=== PATIENT | male | born 1980 ===

== ENCOUNTER 2024-11-23 05:25 | Day surgery (SDC) | payer OTHER ==
[2024-11-17 08:17] VITALS: BP 127/72
[2024-11-17 09:06] LABS: PH,URINE 5.5 (5.0-8.0); URINE APPEARANCE Clear; URINE BILIRRUBIN Negative (NEGATIVE); URINE BLOOD Negative; URINE COLOR Yellow; URINE GLUCOSE Negative (NEGATIVE); URINE KETONE Trace (NEGATIVE); URINE LEUKOCYTE Negative; URINE NITRATE Negative; URINE PROTEIN Negative (NEGATIVE)
[2024-11-17 09:09] LABS: BASO % 0.2 % (0.1-1.2); EOS # 0.13 (0.04-0.54); EOS % 1.2 % (0.7-7.0); HEMATOCRIT 44.7 % (40.1-51.0); HEMOGLOBIN 14.8 g/dL (13.7-17.5); LYMPH # 3.72 (1.18-3.74); LYMPH % 33.6 % (19.3-53.1); MEAN CORPUSCULAR HEMOGLOBIN 29.2 pg (25.6-32.2); MONO # 0.62 (0.24-0.82); MONO % 5.6 % (4.7-12.5); NEUT # 6.52 (1.56-6.13); NEUT % 58.9 % (34.0-71.1); PLATELET COUNT 302 K/uL (163-369); RED BLOOD COUNT 5.07 M/uL (4.63-6.08); RED CELL DISTRIBUTION WIDTH 13.1 % (11.6-14.4)
[2024-11-17 09:10] LABS: URINE BACTERIA 7.3 uL (0.0-1933); URINE RBC 5.7 uL (0.0-20.8)
[2024-11-17 09:25] LABS: URINE CAST 0.14 uL (0.0-1.40); URINE EPITHELIAL CELLS 1.2 uL (0.0-38.8); URINE WBC 1.5 uL (0.0-23.2)
[2024-11-17 09:36] LABS: INR 0.95; PARTIAL THROMBOPLASTIN TIME 28.2 SECONDS (22.0-34.0); PROTHROMBIN TIME 10.4 SECONDS (9.0-11.5)
[2024-11-17 10:19] LABS: ALBUMIN 3.6 gm/dL (3.4-5.0); BILIRUBIN TOTAL 0.89 mg/dL (0.3-1.2); BILIRUBIN,CONJUGATED 0.17 mg/dL (0.0-0.2); BILIRUBIN,UNCONJUGATED 0.72 mg/dL (0.0-0.6); CALCIUM 9.3 mg/dL (8.5-10.1); CREATININE SERUM 0.79 mg/dL (0.70-1.30); GFR 105.59; POTASSIUM 4.05 mEq/L (3.5-5.1)
[~2024-11-23] VITALS: Ht 175.3 cm; Wt 92.5 kg
[~2024-11-23 05:25] MED LIST: ERTAPENEM SODIUM 1,000 MG VIAL IV SCH; LIPITOR20 MG; METFORMIN HCL500 M3
[2024-11-23] MEDS ORDERED: BUPIVACAINE HCL/MPF 0.5% 30ML VIAL ONE (07:10)
[2024-11-23] MEDS ORDERED: ERTAPENEM SODIUM 1,000 MG VIAL ONE (07:10)
[2024-11-23] MEDS ORDERED: ENOXAPARIN SODIUM 40 MG/0.4 ML SYRINGE SUBCUTANEO ONE ×2 (07:10→08:15)
[2024-11-23] MEDS ORDERED: ERTAPENEM SODIUM 1,000 MG VIAL IV ONE (08:15)
[2024-11-23] MEDS ORDERED: BUPIVACAINE HCL 30 ML VIAL IJ ONE (08:15)
[2024-11-23] MEDS ORDERED: SUGAMMADEX SODIUM 200 MG/2 ML VIAL IV ONE (08:54)
[2024-11-23] MEDS ORDERED: PERCOCET 5-3251 EACH PO (10:01)
[2024-11-23] MEDS ORDERED: CELEBREX200MG PO (10:01)
[2024-11-23] MEDS ORDERED: NEURONTIN300 MG PO (10:01)
[2024-11-23] MEDS ORDERED: POLY119PG PO (10:02)
== END 2024-11-23 12:30 | disposition home or self-care (01) ==
LOC: CIR.AMB 05:25
PROVIDERS: ATTEND Surgery
DX: K40.20 Bilateral inguinal hernia, without obstruction or gangrene, not specified as recurrent (principal); K42.0 Umbilical hernia with obstruction, without gangrene; Z88.0 Allergy status to penicillin
CPT/HCPCS: 49650; 49594; C1781